=== PATIENT | male | born 1965 | race Caucasian/White ===

== ENCOUNTER 2019-01-27 23:10 | Emergency (ER) | payer OTHER, BC ==
[~2019-01-27] VITALS: Ht 157.5 cm; Wt 66.0 kg
[2019-01-27 23:14] VITALS: Ht 157.5 cm; Wt 66.0 kg
[2019-01-28] MEDS ORDERED: SOD CHLORIDE 0.9% 500 ML IV STA (01:59)
[2019-01-28] MEDS ORDERED: morphine 4 MG/ML VIAL IV STA (01:59)
[2019-01-28] MEDS ORDERED: LIDOCAINE/MYLANTA 40 ML BTL PO STA (01:59)
[2019-01-28] MEDS ORDERED: ONDANSETRON 4 MG INJ IV STA (01:59)
[2019-01-28] MEDS ORDERED: OMEP40CA6 PO (03:58)
[2019-01-28] MEDS ORDERED: CALC300T4 PO (03:58)
[2019-01-28] MEDS ORDERED: FAMO20TA18 PO (03:58)
--- NOTE | 2019-01-28 04:08 | ERD ---
ER Documentation Chief Complaint Chief Complaint EPIGASTRIC PAIN X 1 MONTH HPI This is a 53-year-old with epigastric pain for the past month. Denies any fevers or chills. He says male medications are helping. Denies any other curr ent complaints. Pain is mild to moderate intensity burning sensation involving the pit of his stomach with mild associated nausea but no vomiting. 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 Medications Home Meds Reported Medications Calcium Carbonate* (Tums X-Str) 300 Mg Tab.chew, 300 MG PO, TAB.CHEW 01/28/19 Famotidine* (Famotidine*) 20 Mg Tablet, 20 MG PO DAILY, #30 TAB 01/28/19 Omeprazole* (Omeprazole*) 40 Mg Capsule.dr, 40 MG PO DAILY, #30 CAP 01/28/19 Allergies Allergies: Coded Allergies: aspirin (Verified Allergy, Unknown, 01/28/19) PMhx/Soc Medical and Surgical Hx: pt denies Medical Hx, pt denies Surgical Hx Hx Miscellaneous Medical Probl: Yes (GASTRITIS) Hx Alcohol Use: No Hx Substance Use: No Hx Tobacco Use: No Smoking Status: Never smoker Physical Exam Vitals Vital Signs Date Temp Pulse Resp B/P (MAP) Pulse Ox O2 O2 Flow FiO2 Time Delivery Rate 01/28/19 50 16 120/75 100 Room Air 02:49 (90) 01/27/19 97.8 55 18 131/79 98 23:14 (96) Physical Exam Const: No acute distress Head: Atraumatic Eyes: Normal Conjunctiva ENT: Normal External Ears, Nose and Mouth. Neck: Full range of motion. No meningismus. Resp: Clear to auscultation bilaterally Cardio: Regular rate and rhythm, no murmurs Abd: Soft, non tender, non distended. Normal bowel sounds Skin: No petechiae or rashes Back: No midline or flank tenderness Ext: No cyanosis, or edema Neur: Awake and alert Psych: Normal Mood and Affect Result Diagram: 01/28/19 0230 01/28/19 0230 Results 24 hrs Laboratory Tests Test 01/28/19 02:30 White Blood Count 6.9 10^3/ul Red Blood Count 4.92 10^6/ul Hemoglobin 14.6 g/dl Hematocrit 42.2 % Mean Corpuscular Volume 85.8 fl Mean Corpuscular Hemoglobin 29.7 pg Mean Corpuscular Hemoglobin Concent 34.6 g/dl Red Cell Distribution Width 12.6 % Platelet Count 213 10^3/UL Mean Platelet Volume 11.7 fl Immature Granulocytes % 0.300 % Neutrophils % 56.5 % Lymphocytes % 32.4 % Monocytes % 9.5 % Eosinophils % 0.9 % Basophils % 0.4 % Nucleated Red Blood Cells % 0.0 /100WBC Immature Granulocytes # 0.020 10^3/ul Neutrophils # 3.9 10^3/ul Lymphocytes # 2.2 10^3/ul Monocytes # 0.7 10^3/ul Eosinophils # 0.1 10^3/ul Basophils # 0.0 10^3/ul Nucleated Red Blood Cells # 0.0 10^3/ul Sodium Level 144 mmol/L Potassium Level 3.9 mmol/L Chloride Level 104 mmol/L Carbon Dioxide Level 27 mmol/L Anion Gap 13 Blood Urea Nitrogen 19 mg/dl Creatinine 0.85 mg/dl Est Glomerular Filtrat Rate mL/min > 60 mL/min Glucose Level 98 mg/dl Calcium Level 8.9 mg/dl Total Bilirubin 1.3 mg/dl Direct Bilirubin 0.00 mg/dl Indirect Bilirubin 1.3 mg/dl Aspartate Amino Transf (AST/SGOT) 22 IU/L Alanine Aminotransferase (ALT/SGPT) 29 IU/L Alkaline Phosphatase 197 IU/L Troponin I < 0.012 ng/ml Total Protein 7.9 g/dl Albumin 4.1 g/dl Globulin 3.80 g/dl Albumin/Globulin Ratio 1.07 Lipase 235 U/L Current Medications Medications Dose Sig/[place] Start Time Status Last (Trade) Ordered Route PRN Stop Time Admin Dose Reason Admin Sodium 500 ml @ Q1H STAT 01/28/19 DC 01/28/19 Chloride 500 mls/hr IV 01:59 02:23 01/28/19 02:58 Morphine 4 mg ONCE STAT 01/28/19 DC 01/28/19 Sulfate IV 01:59 02:24 (morphine) 01/28/19 02:00 Ondansetron 4 mg ONCE STAT 01/28/19 DC 01/28/19 HCl (Zofran IV 01:59 02:24 Inj) 01/28/19 02:00 40 ml ONCE STAT 01/28/19 DC 01/28/19 Miscellaneous PO 01:59 02:23 Medication 01/28/19 02:00 (Gi Cocktail (2)) Procedures/MDM EKG: Rate/Rhythm: [Normal Sinus Rhythm] QRS, ST, T-waves: [No changes consistent w/ acute ischemia] Impression: [No evidence of ischemia or arrhythmia] Chest X-ray 1V Interpreted by me: Soft Tissue: No acute abnormalities Bones: No acute abnormalities Mediastinum/Cardiac Silhouette/Lungs: [No acute abnormalities] Medical decision making: Patient's gastrointestinal symptoms have stabilized while in the department. No evidence of severe dehydration, sepsis, or surgical abdomen. Extensive discussion with family and patient that occult disease cannot be ruled out. 8 hour recheck for repeat abdominal exam is planned. Departure Diagnosis: Primary Impression: Epigastric pain Condition: Stable HAYDEE STEVE Jan 28, 2019 04:08
[2019-01-28] MEDS ORDERED: TRAM50TA2 PO (04:09)
[2019-01-28] MEDS ORDERED: SUCR1TAB56 PO (04:09)
[2019-01-28] MEDS ORDERED: ONDA4TAB14 PO (04:09)
[2019-01-28 05:23] VITALS: BP 114/78; PULSE 50; RESP 17
== END 2019-01-28 05:24 | disposition home or self-care (01) ==
LOC: E/R 23:10
DX: R10.13 Epigastric pain (principal); R11.0 Nausea
CPT/HCPCS: 36415; 71045; 80053; 83690; 84484; 85025; 93005; 96374; 96375; 99285; J2270; J2405; J7040